=== PATIENT | male | born 1950 | race Caucasian/White ===

== ENCOUNTER → 2016-10-12 | Outpatient (CLI) | payer OTHER, BC ==
[~2016-10-12] VITALS: Ht 177.8 cm; Wt 91.4 kg
[~2016-10-12] MED LIST: ABILIFY 5 MG TAB5 MG PO; ALDACTONE25 MG PO; ALPRAZOLAM 0.0.25 M1 PO; ATORVASTATIN CA10 MG PO; BIAXIN 500 MG500 M1 PO; BUPIVACAINE INTRATHECA; BUPIVICAINE; CALCIUM 500 +1 EAC5 PO; CENTRUM COMPLE1 EACH PO; CENTRUM SILVER1 EAC2 PO; CENTRUM TABLET1 TAB PO; CLONAZEPAM 1 MG1 M1 PO; CYMBALTA60 MG OR; CYMBALTA60 MG PO; DESYREL100 MG PO; DESYREL50 MG PO; DETROL LA4 MG PO; DEXTROAMPHETAMIN5 M2 OR; DILAUDID HP10 MG/M1; DILAUDID-H10 MG/1 M1 INTRATHECA; ENDOCET 10-3251 EACH PO; FINASTERIDE5 MG PO; FISH OIL 1,0001 EAC5 PO; FLOMAX PO; FLORINEF ACETA0.1 MG PO; GABAPENTIN 100100 MG PO; GRALISE600 MG PO; HYDROCODON-ACE1 EACH OR; HYDROCODON-ACE1 EACH PO; HYDROCODONE-AP1 EA10 PO; HYDROMORPHONE; IBUPROFEN 200200 M1 PO; INTRATHECAL MED; LAMISIL250 MG PO; LEVAQUIN 500 M500 M2 PO; LEVOTHROID125 MCG PO; MELATONIN3 MG PO; OMEPRAZOLE 20 M20 M1 PO; OXYCODONE-ACET1 EAC2 PO; PERCOCET 10-321 EACH PO; TAMSULOSIN HCL0.4 M1 PO; TAMSULOSIN HCL0.4 MG OR; VITAMIN D3400 UNIT PO; ZOLOFT100 MG PO
--- NOTE | ~2016-10-12 | HPC ---
[facility] [place] [address] PAIN MANAGEMENT CONSULTATION Name: MESFIN LAKE [id number] Admission: 10/12/16 Attend Phys: William Dimas, Discharge: Date of : 46 Report #: [id number] THIS REPORT FOR: //name// CC: Jc Dimas The patient is a 66-year-old gentleman typically seen by Dr. Rosendo Philip for chronic cervicalgia, headaches, complex medication management requiring intrathecal pump management. Last visit 08/10/2016. The patient was continued on gabapentin 100 mg b.i.d., intrathecal pump (bupivacaine and hydromorphone) with decreased 3% to a final dose of 7.3 mg of each drug. The patient returns to pain clinic today noting that with this decrease, apparently symptoms have become quite more problematic, presents to the pain clinic today complaining of pain is an 8/10 primarily his head, neck, and left shoulder. Dull chronic aching again rates an 8-10 on a 0-10 visual analog scale. PHYSICAL EXAMINATION: Shows 66-year-old gentleman, BMI is 27 kilograms per meter squared. VITAL SIGNS: Stable as noted in the EMR. Former smoker. NEUROLOGIC: Cranial 2-12 are grossly intact. Affect is flat, has some modest photophobia. MUSCULOSKELETAL: Cervical range of motion is modestly diminished. Does not have any nuchal rigidity. The patient is following up at the OR, apparently recent EGD shows the other stomach ulcer. They recommended discontinuing his rather copious use of ibuprofen (up to 10-12 tablets a day). RECOMMENDATION: Long discussion with the patient today about therapeutic options. I will increase his pump back to the prior dose of 7.587 mg of both bupivacaine and hydromorphone a day. Suggested if this does not afford adequate relief, consider increasing his gabapentin to 200 mg at bedtime. He is a little hesitant to move forward this, stating that he thinks that the gabapentin cause some somnolence and/or sedation. Claims that he has continued to take it b.i.d. I suggested rotating to Lyrica, but he states that he has taken that in the past for apparently for bipedal peripheral neuropathy, but he states it did not help at all with his headaches. Intrathecal pump reprogrammed today. Follow up with Dr. Philip as needed. By: 1132 William Dimas DO /nt
[2016-10-12 09:04] VITALS: BP 131/69
== END | disposition home or self-care (01) ==
LOC: PAIN 06:49
DX: M54.2 Cervicalgia (principal); G89.29 Other chronic pain; R51 Headache; Z87.891 Personal history of nicotine dependence; Z98.890 Other specified postprocedural states

== ENCOUNTER → 2016-10-14 | Outpatient (CLI) | payer OTHER, BC ==
[~2016-10-14] VITALS: Ht 177.8 cm; Wt 91.6 kg
--- NOTE | ~2016-10-14 | HPC ---
[facility] [place] [address] PAIN MANAGEMENT CONSULTATION Name: MESFIN LAKE Room #: REG [facility]JaJatinder#: [id number] Admission: 10/14/16 Attend Phys: oRsendo Philip MD Discharge: Date of : 46 Report #: [id number] THIS REPORT FOR: //name// CC: Rosendo Valdivia MD DATE OF SERVICE: 10/14/2016 Followup visit for chronic cervicalgia with some radiating pain in the occiput and radiculopathy. The patient returns to the pain clinic today and would like an increase in his intrathecal pump medication. Dr. William Dimas gave him a very small increase just about a week ago. I have agreed to give him much larger increase and we will see if he responds. He is getting hydromorphone and bupivacaine pump that I have increased by 18% today, this changes his CHELO. The programming was done before discharge, his low reservoir alarm date is now 12/24/2016. PHYSICAL EXAMINATION: GENERAL: He has limited range of motion with flexion and extension. Tenderness across the occiput is noted. There is pain that radiates through the trapezius down into the upper arm bilaterally. Pain is worse on the right than the left. The strength is diminished bilaterally in the upper extremities. There is no evidence of hyperreflexia in the lower extremities to suggest myelopathy. IMPRESSION: Chronic cervicalgia with radiculopathy. Cervical radiculopathy is noted in the lower cervical distribution. At that location, there is foraminal narrowing at C4-C5, C6-C7 and elsewhere throughout the cervical spine. RECOMMENDATIONS: 1. Increase intrathecal pump, which was done first. 2. Consider cervical epidural injections in the future. He was discharged with followup visit planned as needed. By: [id number] Rosendo Philip MD /nt
[2016-10-14 13:04] VITALS: BP 153/79
== END | disposition home or self-care (01) ==
LOC: PAIN 07:01
DX: Z45.1 Encounter for adjustment and management of infusion pump (principal); M54.12 Radiculopathy, cervical region; G89.29 Other chronic pain; Z87.891 Personal history of nicotine dependence

== ENCOUNTER → 2016-12-24 | Outpatient (CLI) | payer OTHER, BC ==
[~2016-12-24] VITALS: Ht 177.8 cm; Wt 91.4 kg
[2016-12-24 08:36] VITALS: BP 134/78
== END | disposition home or self-care (01) ==
LOC: PAIN 06:35
DX: M54.12 Radiculopathy, cervical region (principal); R51 Headache; G89.29 Other chronic pain; Z79.891 Long term (current) use of opiate analgesic; Z87.891 Personal history of nicotine dependence; Z98.890 Other specified postprocedural states

== ENCOUNTER → 2017-03-11 | Outpatient (CLI) | payer OTHER, BC ==
[~2017-03-11] VITALS: Ht 177.8 cm; Wt 92.8 kg
[~2017-03-11] MED LIST changes: +MOBIC7.5 MG PO
--- NOTE | ~2017-03-11 | HPC ---
[facility] [place] [address] [place] [address] PAIN MANAGEMENT CONSULTATION Name: MESFIN LAKE Room #: REG [facility] Mark.#: [id number] Admission: 03/11/17 Attend Phys: Rosendo Philip MD Discharge: Date of : 46 Report #: [id number] THIS REPORT FOR: //name// CC: Rosendo Valdivia DATE OF SERVICE: 03/11/2017 Followup visit for chronic neck pain and management of intrathecal infusion. The patient is seen today requesting an increase in his intrathecal medication. He fell 3 weeks ago. This aggravated his neck and his shoulder. He scores his pain as a 7/10. His pump has been working well and in lieu of increasing oral medications, I believe that it makes sense to increase his intrathecal infusion. He is currently using oxycodone for breakthrough no more than 2 tablets a day, and I have suggested a trial of meloxicam 7.5 mg b.i.d. to help with the joint pain. PHYSICAL EXAMINATION: He is pleasant. Depression is well controlled. Blood pressure 126/65, heart rate 60. BMI 29.4. He has diffuse stiffness and tenderness throughout the neck bilaterally, pain below the occiput. He has restricted range of motion. IMPRESSION: 1. Chronic neck pain with spondylosis. 2. History of posterior decompression and fusion. RECOMMENDATIONS: I have increased intrathecal infusion by 7% today. Daily dose will be bupivacaine 7.9, hydromorphone 7.9. I renewed his oxycodone 2 tablets per day for a total of 30 morphine milligram equivalents daily. A followup visit is scheduled at the time of his next refill, which will be 05/20/2017. By: 1304 20 Rosendo Philip MD /nt
[2017-03-11 09:27] VITALS: BP 126/65
== END | disposition home or self-care (01) ==
LOC: PAIN 06:06
DX: Z45.1 Encounter for adjustment and management of infusion pump (principal); M54.2 Cervicalgia; G89.29 Other chronic pain; M47.892 Other spondylosis, cervical region; Z98.890 Other specified postprocedural states; Z87.891 Personal history of nicotine dependence; Z88.8 Allergy status to other drugs, medicaments and biological substances; Z79.899 Other long term (current) drug therapy

== ENCOUNTER → 2017-06-09 | Outpatient (CLI) | payer OTHER, BC ==
[~2017-06-09] VITALS: Ht 177.8 cm; Wt 94.2 kg
[~2017-06-09] MED LIST changes: +PRAVACHOL20 MG PO; +SYNTHROID100 MCG PO
--- NOTE | ~2017-06-09 | HPC ---
[facility] [address] [place] [address] PAIN MANAGEMENT CONSULTATION Name: MESFIN LAKE Room #: REG [facility].#: [id number] Admission: 06/09/17 Attend Phys: Hi Dimas DO Discharge: Date of : 46 Report #: [id number] THIS REPORT FOR: //name// CC: Hi Valdivia MD DATE OF SERVICE: 06/09/2017 CHIEF COMPLAINT: Chronic neck pain. HISTORY OF PRESENT ILLNESS: As you know, the patient is a 67-year-old male followed by my partner, Dr. Roesndo Philip for chronic back pain and head pain. He indicates his pain is stabbing, sharp, aching in sensation; places current pain score at 5/10; exacerbated with activity. Pain level appears to be constant. Medications, lying down and rest appear to improve pain. The patient has an intrathecal pump that is running hydromorphone and bupivacaine. Most recent changes in his intrathecal pump reveals he is receiving Dilaudid 9 mg per day, bupivacaine 9 mg per day. Despite these high levels of intrathecal infusions, he is continuing to experience pain at 5/10. He returns today in followup visit requesting refills on his breakthrough pain medication. He takes oxycodone and gabapentin for neuropathic pain and residual neck pain. He is denying any side effects to medication at this time. ALLERGIES: Band-Aids, hydroxyzine, mirtazapine, levofloxacin. CURRENT MEDICATIONS: Pravastatin, Levothroid, Percocet, omeprazole, gabapentin, calcium carbonate, multivitamin, cholecalciferol, Florinef, hydromorphone, bupivacaine, intrathecal, duloxetine, ibuprofen. IMAGING: No new imaging available. PHYSICAL EXAMINATION: VITAL SIGNS: Blood pressure 109/88, pulse 64, respiratory rate 16 and unlabored, the patient 99% on room air. Height 5 feet 10 inches tall, weight 207.6 pounds, BMI calculated at 29.8. GENERAL: Well-developed, well-nourished, well-hydrated, 67-year-old male. He appears his stated age, pain is rated at 5/10. HEENT: Normocephalic, atraumatic. Pupils equal, round, reactive to light. Extraocular muscles are intact. Sclerae nonicteric, without injection. Speech appears fluent. EXTREMITIES: Show no clubbing, no cyanosis, no edema. MUSCULOSKELETAL: Tenderness to palpation over the paraspinal musculature, cervical spine, no spinous process tenderness. Deep palpation of the cervical region causes intensification of pain. There is no crepitus with motion. Range of motion is restricted. [address] [address] PAIN MANAGEMENT CONSULTATION Name: DAVID LAKETHIAGO BOURGEOIS Room #: REG CL Cecelia#: [id number] Admission: 06/09/17 Attend Phys: Hi Dimas DO Discharge: Date of : 46 Report #: [id number] ASSESSMENT: 1. Chronic neck pain. 2. Failed cervical spine surgery. 3. Chronic intractable pain. PLAN: 1. The patient has returned today in followup visit placed on my schedule to provide breakthrough pain medication. The patient recently had an adjustment in his intrathecal pump, now infusing 9 mg of Dilaudid per day intrathecal as well as bupivacaine 9 mg per day. Despite this escalation in high level of medication, the patient continues to experience pain level of 5/10. He returns requesting refill on the Percocet, gabapentin, typically provided by Dr. Rosendo Philip, his primary pain physician. Due to scheduling conflicts, the patient was placed on my schedule to provide these medications to the patient today. 2. The patient was provided prescription of oxycodone 10 mg dose 1 tab p.o. b.i.d., #60. He was given releases of today and 4 weeks from today. This should last the patient for approximately 2 months. 3. The patient was provided prescription of gabapentin 100 mg dose, given #180, 1 refill. He is to continue the medication as directed. He has titration of medication provided through his primary pain physician. He is to continue the titration as directed with the gabapentin. 4. We will see the patient back in followup visit with Dr. Rosendo Philip in approximately 2 months for breakthrough pain medication and further adjustments in his intrathecal pump as necessary. Can follow up with Dr. Philip on an as needed basis. <ELECTRONICALLY SIGNED> By: Hi Dimas DO 06/16/17 1216 1706 46 Hi Dimas DO /nt
[2017-06-09 08:58] VITALS: BP 109/88
== END ==
LOC: PAIN 07:09
DX: G89.29 Other chronic pain (principal); M54.2 Cervicalgia

== ENCOUNTER → 2017-09-09 | Outpatient (CLI) | payer OTHER, BC ==
[~2017-09-09] VITALS: Ht 177.8 cm; Wt 94.3 kg
[~2017-09-09] MED LIST changes: +TYLENOL EXTRA500 MG PO
--- NOTE | ~2017-09-09 | HPC ---
[facility] [place] [address] PAIN MANAGEMENT CONSULTATION Name: MESFIN LAKE Room #: REG [facility] Mark.#: [id number] Admission: 09/09/17 Attend Phys: Rosendo Philip MD Discharge: Date of : 46 Report #: [id number] THIS REPORT FOR: //name// CC: Rosendo Valdivia MD DATE OF SERVICE: 09/09/2017 DATE OF REGISTRATION: 09/09/2017 Follow up visit for management of intrathecal infusion pump. The patient returns to pain clinic today for renewal of his intrathecal medications. He has tapered off of opioids. His dose was never too high, usually no more than 20-30 MME. He has been able to reduce his dose, but continues on gabapentin at a dose of 200 mg 3 times daily, which we will continue. His pump is infusing hydromorphone and Dilaudid. We will continue with that. He would like an epidural injection. His pain has increased slightly since coming off of his opioids. He would like not to restart them. His pain is in his low back, below the level of his pump insertion. The pain radiates down in the posterior aspect of both legs and L5-S1 distribution. PQRS review shows history of osteoarthritis. Important instructions regarding remaining mobility as a fuentes management tool was discussed. He has significant range of motion limitations in his neck and his spine due to spondylitic changes. He keeps his weight fairly well under control. He is under 30 BMI with 29.8 score today. He is not under treatment for hypertension. His blood pressure is 143/81. Heart rate is 63 and he is well oxygenated with 98% on room air. Pain intensity is 7/10. He frequently has dizziness, which relates occipital headaches. He is no longer on opioids and I congratulated him on getting off of medication and I will gladly provide him with an epidural, hopefully to keep him off of opioid medication and will provide pain medication only through the intrathecal pump. He is on a relatively high dose of intrathecal hydromorphone, but this does not affect him systemically. PHYSICAL EXAMINATION: He is able to move from sitting to standing position, walks without antalgic features. He has positive straight leg raising noted bilaterally radiates down the L5-S1 distribution. He has limited range of motion of the cervical spine with tenderness around the scar. IMPRESSION: 1. Chronic pain with intrathecal infusion pump. 2. Low back pain with radiculopathy involving both legs in the L5-S1 [facility] [address] [place] [address] PAIN MANAGEMENT CONSULTATION Name: MESFIN LAKE Room #: REG [facility]#: [id number] Admission: 09/09/17 Attend Phys: Rosendo Philip MD Discharge: Date of : 46 Report #: [id number] distribution, left worse than right. 3. Occipital pain with chronic occipital neuralgia. 4. History of depression. PROCEDURE: L5-S1 epidural injection under fluoroscopic guidance. He was taken to fluoroscopic suite, placed prone, skin prepped with ChloraPrep. Skin anesthetized over the L5-S2 interspace. A 20-gauge Tuohy epidural needle advanced in the first attempt in the epidural space with loss of resistance technique. There was no blood. No CSF aspirated. 1 mL of Omnipaque injected. Good spread of dye observed in the epidural space followed by 3 mL of 0.5% lidocaine mixed with 80 mg of triamcinolone. He tolerated the procedure well and was observed for 45 minutes and discharged. Follow up as needed. <ELECTRONICALLY SIGNED> By: Rosendo Philip MD 10/04/17 1408 [id number] [id number] Rosendo Philip MD /nt
[2017-09-09 12:19] VITALS: BP 143/81
== END | disposition home or self-care (01) ==
LOC: PAIN 07:02
DX: M54.16 Radiculopathy, lumbar region (principal); M54.5 Low back pain; G89.4 Chronic pain syndrome; F32.9 Major depressive disorder, single episode, unspecified; M19.90 Unspecified osteoarthritis, unspecified site

== ENCOUNTER → 2018-01-10 | Outpatient (CLI) | payer OTHER, BC ==
[~2018-01-10] VITALS: Ht 177.8 cm; Wt 94.0 kg
--- NOTE | ~2018-01-10 | HPC ---
[facility] [place] [address] PAIN MANAGEMENT CONSULTATION Name: MESFIN LAKE Room #: REG [facility] Mark.#: [id number] Admission: 01/10/18 Attend Phys: Rosendo Philip MD Discharge: Date of : 46 Report #: [id number] THIS REPORT FOR: //name// CC: Rosendo Valdivia MD DATE OF SERVICE: 01/10/2018 Followup visit for chronic low back pain with spondylosis and radiculopathy. The patient returns to pain clinic today for consultation and refill of his intrathecal infusion pump. He has a new MRI scan, which I have reviewed with him and we discussed it for 15-20 minutes at the conclusion of his pump refill. Total time spent in consultation with the patient and exam is 25 minutes today. The patient says that his pain is increasing and is more severe in his low back, it is radiating into his legs. Pain is worse with prolonged sitting. He describes it as a stabbing, aching, sharp sensation, 7/10. Pain does radiate in a radicular pattern down the left leg and at times on the right. He has had previous surgeries, but all on his neck. Intrathecal pump was placed nearly 12 years ago. He is on his second pump and he only has 26 months remaining on it. He is currently being treated for his chronic pain with a combination of hydromorphone and bupivacaine, which will remain at roughly 9 mg per day for each medication. He reports that the pain in his back oftentimes limits his activities, he likes to paint and do tie flies. Both are limited. He has a PQRS review, which shows that he has osteoarthritis of the lumbar spine, also enlarged joints. He has had previous spondylitic changes above and below the surgery in his neck. His BMI today is 29.7. He manages his weight. He is not hypertensive and is not under treatment. He is currently receiving all of his pain medication through his intrathecal pump and we no longer provide him with any opioids orally. He uses gabapentin as a supplement to his intrathecal opioids. He does not smoke nor does he use alcohol. He has completed our risk assessment tool. PHYSICAL EXAMINATION: Reveals a pleasant gentleman, alert and oriented. No signs of overmedication. Pump is in the right lower quadrant, nontender. He is able to move from sitting to standing position, but complains of pain in his back with flexion of the lumbar spine and extension. Rotational movements and lateral tilt are also performed with some increase in pain. Straight leg raising is markedly positive on the left in the sitting and supine position. Pain is mostly in his back; however, and does not radiate so much into the leg. [address] [address] PAIN MANAGEMENT CONSULTATION Name: MESFIN LAKE CHRISTELLE Room #: REG CL Cecelia#: [id number] Admission: 01/10/18 Attend Phys: Rosendo Philip MD Discharge: Date of : 46 Report #: [id number] Sensation is intact. Deep tendon reflexes are 2+ knees and ankles. MRI scan is reviewed. It does show that he has some lateral recess stenosis; however, the central stenosis is fairly moderate to mild and not considered to be significant. He has some neuroforaminal narrowing, perhaps at L4-L5 at the worst. Degenerative disk disease throughout is noted. IMPRESSION: 1. Lumbosacral pain with radiculopathy both legs, L4 through S1. 2. Chronic occipital neuralgia. 3. History of depression, stable. 4. Management of intrathecal infusion pump. PLAN: 1. May consider an epidural injection once again. However, I would consider a transforaminal approach at L4-L5 given limited response to midline approach. 2. Refill of intrathecal infusion pump. PROCEDURE: Skin was prepped with ChloraPrep. Skin anesthetized and a 22-gauge non-coring needle advanced in the intrathecal pump. Old medication removed and discarded. Pump refilled with a combination of bupivacaine and hydromorphone. Dose will remain roughly 9 mg per day of each. A reprogramming session shows that his next reservoir alarm date is 05/15/2018. His reservoir volume is 39.5. His CHELO is 26 months. I did discuss with him the possibility of about 1% that a pocket fill or leakage from his pump could occur that could cause an overdose situation typically found within the first 6-24 hours following pump refill. If he feels excessively drowsy or sedated in any way that he should visit the nearest Emergency Room. They have my cell phone for contact at any time. Followup visit is planned in the pain clinic in April. By: 1106 1207 Rosendo Philip MD /nt
[2018-01-10 09:36] VITALS: BP 131/66
== END | disposition home or self-care (01) ==
LOC: PAIN 08:35
DX: Z45.1 Encounter for adjustment and management of infusion pump (principal); M47.27 Other spondylosis with radiculopathy, lumbosacral region; M54.81 Occipital neuralgia; G89.29 Other chronic pain; Z79.891 Long term (current) use of opiate analgesic; Z86.59 Personal history of other mental and behavioral disorders; Z79.899 Other long term (current) drug therapy; Z87.891 Personal history of nicotine dependence; Z88.8 Allergy status to other drugs, medicaments and biological substances

== ENCOUNTER → 2018-04-25 | Outpatient (CLI) | payer OTHER, BC ==
[~2018-04-25] VITALS: Ht 177.8 cm; Wt 95.4 kg
--- NOTE | ~2018-04-25 | HPC ---
[facility] [place] [address] [place] [address] PAIN MANAGEMENT CONSULTATION Name: MESFIN LAKE Room #: REG [facility] Mark.#: [id number] Admission: 04/25/18 Attend Phys: Rosendo Philip MD Discharge: Date of : 46 Report #: [id number] THIS REPORT FOR: //name// CC: Rosendo Valdivia MD DATE OF SERVICE: 04/25/2018 Followup visit for epidural steroid injection. The patient returns to pain clinic today for an injection. He has been a longstanding patient of our clinic and I have provided him with pain management through the use of an intrathecal pump, which has been quite helpful and I have also given him some supplement medication under gabapentin. He is not currently taking oral opioid. His last prescription for oxycodone in our clinic was on 06/09/2017. His intrathecal pump provides medication at fairly high dose. We have adjusted it periodically over the years. His most recent refill was on 01/10/2018. He is receiving 9 mg a day of both bupivacaine and hydromorphone. We refill his pump at roughly 4-month intervals. Today, his pain is primarily on the left and radiates down in an L5-S1 distribution. He had a new MRI done in October, which demonstrated a left-sided disk protrusion with facet and ligament hypertrophy causing left foraminal stenosis. He also has evidence of a disk protrusion with facet ligament hypertrophy at both L3-L4 and L4-L5 into the lateral recess bilaterally. His symptom is primarily on the left. Based upon the presentation of his symptoms as well as pain, I recommended that we proceed today with a transforaminal injection. Potential benefits and risks have been reviewed. PQRS review completed shows that he does have osteoarthritis of his large joints, hips and knees, but his primary complaint is spinal and radicular. He has marked spondylitic changes as noted in his MRI. He has significant spondylitic changes above and below the area of the surgery in his neck. His BMI is 30.2. He has gained a slight amount of weight. Monitoring of diet and exercise to maintain weight is an important aspect to pain management was reviewed. He does not use opioids and is not currently on an agreement. He has completed an opioid risk tool, however, and is low risk for addiction. PHYSICAL EXAMINATION: A pleasant, soft spoken gentleman. His blood pressure is 152/68, heart rate 67, BMI 30.2. He has marked stiffness throughout his neck. Has limited range of motion. He has some difficulty and is slow in moving from supine to sitting to standing position. He was in supine position when I came into the room. He has complaints of pain with all movement of the lumbar spine. [address] [address] PAIN MANAGEMENT CONSULTATION Name: MESFIN LAKE Room #: REG [facility] Rai#: [id number] Admission: 04/25/18 Attend Phys: Rosendo Philip MD Discharge: Date of : 46 Report #: [id number] Tenderness across the low back. Straight leg raising is positive on the left following an L5-S1 distribution. Most of his pain, however, we will check is in his lumbosacral region. IMPRESSION: 1. Chronic low back pain with radiculopathy, primarily left today L5-S1 distribution. 2. Chronic occipital neuralgia. 3. History of depression, stable. 4. Management of intrathecal infusion pump. He does not need a refill today. PROCEDURE: Transforaminal epidural injection under fluoroscopic guidance. DESCRIPTION OF PROCEDURE: He was taken to fluoroscopic suite and he was placed prone, skin prepped with ChloraPrep. Skin anesthetized over the L5-S1 neural foramen. Using triplanar fluoroscopic views, I advanced the needle carefully into the epidural space. There was no blood or CSF aspirated. 1 mL of Omnipaque was injected. Good spread of dye was observed along the nerve root and into the epidural space, was followed by 3 mL of 0.5% lidocaine mixed with 80 mg triamcinolone. He tolerated the procedure well and was observed for 45 minutes and discharged. Pain was reduced at the time of discharge. We will see him back in the pain clinic for refill of his intrathecal infusion pump. By: [id number] Rosendo Philip MD /nt
[2018-04-25 12:39] VITALS: BP 152/68
== END | disposition home or self-care (01) ==
LOC: PAIN 06:03
DX: M54.16 Radiculopathy, lumbar region (principal); G89.29 Other chronic pain; M54.81 Occipital neuralgia; M17.0 Bilateral primary osteoarthritis of knee; M16.0 Bilateral primary osteoarthritis of hip; Z86.59 Personal history of other mental and behavioral disorders; Z98.890 Other specified postprocedural states; Z87.39 Personal history of other diseases of the musculoskeletal system and connective tissue; Z88.8 Allergy status to other drugs, medicaments and biological substances; Z79.899 Other long term (current) drug therapy; Z87.891 Personal history of nicotine dependence

== ENCOUNTER → 2018-05-12 | Outpatient (CLI) | payer OTHER, BC ==
[~2018-05-12] VITALS: Ht 177.8 cm; Wt 96.2 kg
--- NOTE | ~2018-05-12 | HPC ---
[facility] [place] [address] PAIN MANAGEMENT CONSULTATION Name: MESFIN LAKE Room #: REG iSria Cecelia#: [id number] Admission: 05/12/18 Attend Phys: Rosendo Philip MD Discharge: Date of : 46 Report #: [id number] THIS REPORT FOR: //name// CC: Rosendo Valdivia DATE OF SERVICE: 05/12/2018 Followup visit for management of intrathecal pump with refill for chronic intractable pain. The patient returns to clinic today for refill of his pump. At his most recent visit, I performed a transforaminal epidural injection for left-sided radiculopathy. He has responded very nicely to that injection and has now had nearly 3 weeks of sustained improvement. We will keep this in mind as a possible treatment for the future. I reviewed his x-ray from that injection, which was performed using a left-sided transforaminal approach of L5-S1. He does have an upcoming surgery with Dr. Garcia, a laminectomy on that side, so these injections may not be necessary in the future. His pump contains baclofen and hydromorphone and it is time for a refill. PQRS is positive for osteoarthritis of hips and knees and spondylosis. BMI is 30. He does not use oral opioids and does not require an opioid agreement. He is on no blood thinning medications and is not under treatment for hypertension. IMPRESSION: 1. Chronic pain with cervicalgia and occipital neuralgia. 2. Lumbar radiculopathy, left L5 distribution with pending L5 laminectomy in the next 1-2 weeks. 3. History of depression, in remission. 4. Management of intrathecal pump with refill. PROCEDURE: Skin prepped with ChloraPrep and anesthetized. A 22-gauge non-coring needle advanced into the pump. Old medication removed and discarded per protocol. Pump was refilled with hydromorphone and bupivacaine and reprogrammed to provide bupivacaine 8.9 mg a day and hydromorphone 8.9 mg a day. His CHELO is 26 months. His next refill is scheduled for 09/14/2018, follow up at that time. No medications were ordered today by phone, but I did give him a prescription for continuation of gabapentin. He has some question on how effective it may be and we talked about different ways of utilizing it. Finally, I did also discuss the use of mindfulness meditation as a tool to help with sleep at nighttime. [address] [address] PAIN MANAGEMENT CONSULTATION Name: DAVID LAKETHIAGO BOURGEOIS Room #: REG CLSiria Rai#: [id number] Admission: 05/12/18 Attend Phys: Rosendo Philip MD Discharge: Date of : 46 Report #: [id number] PLAN: Avoid additional medications if at all possible. By: [id number] Rosendo Philip MD /vale
[2018-05-12 08:47] VITALS: BP 134/70
== END | disposition home or self-care (01) ==
LOC: PAIN 04:25
DX: Z45.1 Encounter for adjustment and management of infusion pump (principal); M54.2 Cervicalgia; M54.81 Occipital neuralgia; G89.29 Other chronic pain; M54.16 Radiculopathy, lumbar region; M19.90 Unspecified osteoarthritis, unspecified site; F32.4 Major depressive disorder, single episode, in partial remission; Z98.890 Other specified postprocedural states; Z79.891 Long term (current) use of opiate analgesic; Z79.899 Other long term (current) drug therapy

== ENCOUNTER → 2018-09-12 | Outpatient (CLI) | payer OTHER, BC ==
[~2018-09-12] VITALS: Ht 177.8 cm; Wt 98.9 kg
--- NOTE | ~2018-09-12 | HPC ---
[facility] [place] [address] PAIN MANAGEMENT CONSULTATION Name: MESFIN LAKE Room #: REG WILMAR Cecelia#: [id number] Admission: 09/12/18 ������������������ Attend Phys: Rosendo Philip MD Discharge: ������������������ Date of : 46 Report #: [id number] THIS REPORT FOR: //name// CC: Rosendo Valdivia DATE OF SERVICE: 09/12/2018 Followup visit for chronic low back pain with radiculopathy and intrathecal pump management. The patient returns to clinic today for refill of his intrathecal pump. He has bupivacaine and hydromorphone infusing. He recently had surgery with Dr. Shon Garcia and is doing well. I am pleased with his outcome and he has recovered nicely and seems to be doing better overall. He is not taking any opioids at this time. Gabapentin 300 mg taken 3 times a day seems to be helpful. He would like to have an additional dose at night. I am willing to provide him up to 1200 mg, but will provided with the 300 mg capsules, so change in medication was ordered today from 100 to 300 mg capsules. PQRS review shows that he is a pleasant gentleman with a history of diffuse osteoarthritis involving the large joints. He manages effectively with his intrathecal medication. His pain intensity is 4/10. He is not a fall risk. He is on no blood thinners nor treated for hypertension. He is not taking opioids at this time and does not use tobacco or alcohol. All medications were reviewed and reconciled. PHYSICAL EXAMINATION: Height is 5 feet 10 inches, weight is 218 pounds, BMI of 31.3, blood pressure 148/77, heart rate 70, respirations 16. He moves easily from sitting to standing position, walks without difficulty. He has tension in his neck and pain with rotational movements of the neck, but these are mild to moderate. He has some pain across his low back and tenderness on his scar, but the lumbar radiculopathy is gone. IMPRESSION: 1. Low back pain with radicular symptoms much improved following surgery. 2. Chronic cervicalgia with occipital neuralgia treated by intrathecal infusion pump doing well. PROCEDURE: Refill and reprogramming intrathecal pump. Skin was prepped with ChloraPrep. A 22-gauge non-coring needle advanced in the pump on the first attempt without difficulty. Good return of 2.7 mL of volume was achieved and this was discarded per protocol. The pump was then refilled [facility] [address] [place] [address] PAIN MANAGEMENT CONSULTATION Name: MESFIN LAKE [id number] Admission: 09/12/18 ������������������ Attend Phys: Rosendo Philip MD Discharge: ������������������ Date of : 46 Report #: [id number] with 39.5 mL of a combination of bupivacaine and hydromorphone and reprogramming session was performed without change. Daily dose is 9.0 mg of bupivacaine and 9.0 mg of hydromorphone. His next refill is scheduled for 01/15/2019. His CHELO is 19 months. We discussed that with him today. No other prescriptions were ordered and plan to see him back for refill at appropriate interval. ��������������������������������������������� ���������������������������������������� By: ��������������������������������������������� [id number] Rosendo Philip MD /nt
[2018-09-12 08:50] VITALS: BP 148/77
--- NOTE | 2018-09-12 09:09 | NUR ---
Pain Clinic Assessment: 1. History of Osteoarthritis: YES History of Rheumatoid Arthritis: NO 2. Height: 5 ft. 10 in. 177.8 cm. Weight: 218.0 lb. oz. 98.884 kg. Patient's BMI: 31.3 3. Vital Signs: BP: 148/77 Pulse: 70 Resp: 16 Temp: 02 Sat: 98 ECG Mon: 4. Pain Intensity: 4 5. Fall Risk: Dizziness: N Needs help standing or walking: N Fallen in the last 3 months: N Fall risk comments: 6. Patient on Blood Thinner: None 7. History of Hypertension: N 8. Opioid Therapy greater than 6 weeks: N Opiate Contract Signed: 9. Risk Assessment Tool Provided: 10. Functional Assessment Tool: 11. Recreational Drug Use: Never Drug Type: Tobacco Use: Former Smoker Tobacco Type: Amount or Packs/day: How Many Years: Alcohol Use: No Frequency: Quant:
== END | disposition home or self-care (01) ==
LOC: PAIN 06:58
DX: Z45.1 Encounter for adjustment and management of infusion pump (principal); M54.16 Radiculopathy, lumbar region; M54.2 Cervicalgia; G89.29 Other chronic pain; M54.81 Occipital neuralgia; M19.90 Unspecified osteoarthritis, unspecified site; Z98.890 Other specified postprocedural states; Z79.891 Long term (current) use of opiate analgesic; Z87.891 Personal history of nicotine dependence; Z88.8 Allergy status to other drugs, medicaments and biological substances; Z79.899 Other long term (current) drug therapy

== ENCOUNTER → 2019-01-12 | Outpatient (CLI) | payer OTHER, BC ==
[~2019-01-12] VITALS: Ht 177.8 cm; Wt 98.7 kg
[~2019-01-12] MED LIST changes: +LASIX 20 MG TAB20 MG PO; +NEURONTIN 300300 M1 PO; -SYNTHROID100 MCG PO; +SYNTHROID125 MC1 PO
--- NOTE | ~2019-01-12 | HPC ---
[facility] [address] [place] [address] PAIN MANAGEMENT CONSULTATION Name: MESFIN LAKE Room #: [facility] [id number] Admission: 01/12/19 ������������������ Attend Phys: Rosendo Philip MD Discharge: ������������������ Date of : 48 Report #: [id number] THIS REPORT FOR: //name// CC: Rosendo Valdivia MD DATE OF SERVICE: 01/12/2019 CHIEF COMPLAINT: Followup visit for chronic intractable low back pain with radiculopathy. Management of intrathecal infusion pump with refill and reprogramming session. HISTORY OF PRESENT ILLNESS: The patient returns to pain clinic for refill of his intrathecal pump. His swelling has dramatically improved over his last visit. He had bilateral lower extremity edema. He decreased his gabapentin and this improved along with 20 mg of Lasix daily. His ankle and foot practically normal today. It is felt that the gabapentin was the cause of his lower extremity swelling and cellulitis. His pain is slightly increased, however. He would like to increase his intrathecal infusion pump. It has been a while since we have done so. I have agreed to increase it by 10%. PQRS REVIEW: 1. He does have a history of osteoarthritis involving hips and knees. 2. BMI is 31.2. 3. Vital Signs: Blood pressure 131/69, heart rate 70, respirations 14. 4. Pain intensity is 3/10 at rest, increasing with activity. 5. He is not a fall risk. 6. No blood thinners. 7. No history of hypertension and is not on medications. 8. He does not have an opioid agreement and receives no oral opioid medication. 9. No risk tool necessary. 10. Denies use of tobacco and alcohol. PHYSICAL EXAMINATION: MUSCULOSKELETAL: He has pain across his low back and tenderness along the scar from his previous surgery. He denies radicular pain. He is able to independently move from sitting to standing position, have mild antalgic features to his gait. EXTREMITIES: Examination of lower extremities reveals good skin turgor. No evidence of edema. Peripheral pulses are palpable. IMPRESSION: 1. Chronic low back pain with radiculopathy, status post laminectomy. [address] [address] PAIN MANAGEMENT CONSULTATION Name: MESFIN LAKE CHRISTELLE Room #: REG CL Mark.#: [id number] Admission: 01/12/19 ������������������ Attend Phys: Rosendo Philip MD Discharge: ������������������ Date of : 46 Report #: [id number] 2. Chronic cervicalgia and occipital neuralgia treated with intrathecal infusion pump, stable. PROCEDURE: Refill and reprogramming of intrathecal infusion pump. Skin was prepped with ChloraPrep and a 22-gauge non-coring needle advanced in the pump. Old medication removed and discarded. Pump refilled with hydromorphone 30 mg/mL and bupivacaine 30 mg/mL. Reprogramming session was performed. His next pump refill will be before 05/05/2019. His CHELO is now down to 15 months. He will need a pump replacement sometime in the spring. I did increase his daily dose. He will be receiving bupivacaine 9.8 mg per day and hydromorphone 9.8 mg per day. Followup visit scheduled in 04/2019. ��������������������������������������������� ���������������������������������������� By: ��������������������������������������������� [id number] Rosendo Philip MD /nt
[2019-01-12 08:42] VITALS: BP 131/69
--- NOTE | 2019-01-12 08:58 | NUR ---
Pain Clinic Assessment: 1. History of Osteoarthritis: YES History of Rheumatoid Arthritis: NO 2. Height: 5 ft. 10 in. 177.8 cm. Weight: 217.6 lb. oz. 98.703 kg. Patient's BMI: 31.2 3. Vital Signs: BP: 131/69 Pulse: 70 Resp: 14 Temp: 02 Sat: 96 ECG Mon: 4. Pain Intensity: 3 5. Fall Risk: Dizziness: N Needs help standing or walking: N Fallen in the last 3 months: N Fall risk comments: 6. Patient on Blood Thinner: None 7. History of Hypertension: N 8. Opioid Therapy greater than 6 weeks: N Opiate Contract Signed: 9. Risk Assessment Tool Provided: 10. Functional Assessment Tool: 11. Recreational Drug Use: Never Drug Type: Tobacco Use: Former Smoker Tobacco Type: Amount or Packs/day: How Many Years: Alcohol Use: No Frequency: Quant:
== END | disposition home or self-care (01) ==
LOC: PAIN 08:27
DX: Z45.1 Encounter for adjustment and management of infusion pump (principal); M54.16 Radiculopathy, lumbar region; G89.29 Other chronic pain; M54.2 Cervicalgia; M54.81 Occipital neuralgia; M19.90 Unspecified osteoarthritis, unspecified site; Z98.890 Other specified postprocedural states; Z79.899 Other long term (current) drug therapy; Z79.891 Long term (current) use of opiate analgesic; Z87.891 Personal history of nicotine dependence; Z88.8 Allergy status to other drugs, medicaments and biological substances

== ENCOUNTER → 2019-01-27 | Outpatient (CLI) | payer OTHER, BC | LOC: MRI 06:42 | DX: M47.27 Other spondylosis with radiculopathy, lumbosacral region (principal); M51.17 Intervertebral disc disorders with radiculopathy, lumbosacral region; M51.27 Other intervertebral disc displacement, lumbosacral region; M51.25 Other intervertebral disc displacement, thoracolumbar region; M51.26 Other intervertebral disc displacement, lumbar region; M48.062 Spinal stenosis, lumbar region with neurogenic claudication; M48.07 Spinal stenosis, lumbosacral region ==

== ENCOUNTER → 2019-03-20 | Outpatient (CLI) | payer OTHER, BC ==
[~2019-03-20] VITALS: Ht 177.8 cm; Wt 98.6 kg
[~2019-03-20] MED LIST changes: +GABAPENTIN100 MG PO; +NEURONTIN300 MG PO
[2019-03-20 12:45] VITALS: BP 150/78
--- NOTE | 2019-03-20 13:01 | NUR ---
Pain Clinic Assessment: 1. History of Osteoarthritis: back History of Rheumatoid Arthritis: NO 2. Height: 5 ft. 10 in. 177.8 cm. Weight: 217.4 lb. oz. 98.612 kg. Patient's BMI: 31.2 3. Vital Signs: BP: 150/78 Pulse: 72 Resp: 16 Temp: 02 Sat: 100 ECG Mon: 4. Pain Intensity: 2 5. Fall Risk: Dizziness: N Needs help standing or walking: N Fallen in the last 3 months: N Fall risk comments: 6. Patient on Blood Thinner: None 7. History of Hypertension: N 8. Opioid Therapy greater than 6 weeks: N Opiate Contract Signed: 9. Risk Assessment Tool Provided: low-0 10. Functional Assessment Tool: 34/70 11. Recreational Drug Use: Never Drug Type: Tobacco Use: Former Smoker Tobacco Type: Amount or Packs/day: How Many Years: Alcohol Use: No Frequency: Quant:
--- NOTE | 2019-03-21 13:02 | HPC ---
[facility] [address] [place] [address] PAIN MANAGEMENT CONSULTATION Name: MESFIN LAKE Room #: REG [facility] [id number] Admission: 03/20/19 Attend Phys: Ashley Rae Discharge: Date of : 46 Report #: [id number] THIS REPORT FOR: //name// CC: Ashley Valdivia MD DATE OF SERVICE: 03/20/2019 CHIEF COMPLAINT: Followup for chronic intractable low back pain with radiculopathy, management of his intrathecal infusion pump. HISTORY OF PRESENT ILLNESS: This is a very pleasant 69-year-old gentleman who returns to the pain clinic today for refill of his medications that he uses to help treat his ongoing low back pain and radiculopathy. He reports a pain score of 2/10 today with the majority of his pain in his lower back. He does have occasional head and neck pain as well. His pain is an achy, sharp, stabbing pain that is worse with activity, but better with medications and lying down. He feels that his gabapentin is very beneficial as well as his intrathecal pump in controlling his pain. He reports that his pain has decreased significantly since his surgery with Dr. Garcia last April and he continues to get better throughout this year. He is here today for refill of his gabapentin since he is out prior to his intrathecal pump fill. ALLERGIES: BAND-AIDS, VISTARIL, MIRTAZAPINE AND LEVAQUIN. CURRENT LIST OF MEDICATIONS: Gabapentin 300 mg 4 times a day, Lasix 20 mg daily, ibuprofen p.r.n., Synthroid 127 mcg daily, Os-Hayes, multivitamin, vitamin D, Cymbalta 120 mg daily. PATIENT'S PQRS: 1. Does have a history of osteoarthritis involving hips and his knees. Denies any rheumatoid arthritis. 2. Height is 5 feet 10 inches, weight is 217, and BMI is 31. 3. Vital signs 150/78, pulse is 72, respirations 16, oxygen sat is 100. Pain score is 2/10. 4. Denies dizziness, does not need help walking or standing, has not fallen in the last 3 months. 5. The patient is not on any blood thinners or hypertensive medicines. 6. Opioid therapy is greater than 6 weeks; therefore, an opiate signed contract is on the chart. Risk assessment tool is low. Functional assessment is 34/70. 7. Recreational drug use, he denies. He is a former smoker and does not drink alcohol. PHYSICAL EXAMINATION: [facility] [address] [place] [address] PAIN MANAGEMENT CONSULTATION Name: MESFIN LAKE Room #: REG [facility].#: [id number] Admission: 03/20/19 Attend Phys: Ashley Rae Discharge: Date of : 48 Report #: [id number] GENERAL: This is alert and orientated 69-year-old gentleman who appears his stated age, placing his current pain score 2/10. HEENT: Normocephalic, atraumatic. Extraocular eye muscles are intact. He is wearing glasses today. MUSCULOSKELETAL: He has tenderness along the scar in his lower back region from previous surgery. Complains of slight radicular pain down his bilateral legs. Able to move independently from the sitting to standing position. He walks with a slightly antalgic gait. ASSESSMENT: 1. Chronic low back pain with radiculopathy, status post lumbar laminectomy. 2. Chronic cervicalgia and occipital neuralgia treated with intrathecal infusion pump, which is stable. RECOMMENDATIONS: 1. I have renewed his gabapentin 300 mg, #120 that he takes 3-4 times a day with 5 additional refills for a total of 6 months. This will enable the patient to hopefully make it through this refill into his next, trying to have his appointments only for his intrathecal pump refills and not needed to come in for medications. 2. The patient may call for an appointment for his pump refill in early April. The patient is seen today in collaboration with Dr. Rosendo Philip who did see the patient as well. <ELECTRONICALLY SIGNED> By: Ashley Rae 03/21/19 1302 [id number] Ashley Rae /vale
== END ==
LOC: PAIN 06:55
DX: M54.16 Radiculopathy, lumbar region (principal); M54.2 Cervicalgia

== ENCOUNTER → 2019-05-04 | Outpatient (CLI) | payer OTHER, BC ==
[~2019-05-04] VITALS: Ht 177.8 cm; Wt 98.1 kg
--- NOTE | ~2019-05-04 | HPC ---
[facility] [address] [place] [address] PAIN MANAGEMENT CONSULTATION Name: MESFIN LAKE Room #: REG Siria Flores.#: [id number] Admission: 05/04/19 Attend Phys: Rosendo Philip MD Discharge: Date of : 46 Report #: [id number] THIS REPORT FOR: //name// CC: Rosendo Valdivia MD DATE OF SERVICE: 05/04/2019 The patient returns today for refill of his intrathecal infusion pump. He continues to provide a decent pain relief for his chronic low back pain with radiculopathy. He describes his pain today as moderate and pain score is 2/10. It is stabbing, aching, sharp. It is increased with activity. It is relieved by medications sleep, and he is more comfortable in the supine position. In addition to his intrathecal medicines, he uses gabapentin 300 mg, but he has reduced the dose down to one 300-mg tablet per day. He would like to taper off and I have given him 100-mg tablets today to do so. PQRS REVIEW: 1. Arthritis is noted primarily in the back with spondylosis. 2. BMI 31.0. 3. Vital signs: Blood pressure 126/73, heart rate 66, respirations 14. 4. Pain intensity is 5/10. 5. Denies falls. 6. Denies blood thinning medications or antihypertensives. 7. He is no longer on opioids, has completed an opioid risk tool scoring 0 and his functional assessment score is 34/70. 8. Denies use of tobacco and alcohol. PHYSICAL EXAMINATION: As above, very pleasant, alert and oriented. No signs of overmedication. He moves independently from sitting to standing position, does not need a cane to walk. His gait is mildly antalgic. He has decreased range of motion in the cervical spine and tenderness below the occiput. He has pain across the low back with flexion and extension and rotation, but this is mild to moderate. Denies weakness in lower extremities. Pump is in the right lower quadrant. IMPRESSION: 1. Chronic intractable low back pain, post laminectomy syndrome. 2. Cervicalgia with chronic occipital neuralgia. PLAN: Refill intrathecal infusion pump. PROCEDURE: Skin was prepped with ChloraPrep and a 22-gauge non-coring needle advanced in the pump. Old medication removed and discarded per protocol. Pump [facility] [address] [place] [address] PAIN MANAGEMENT CONSULTATION Name: MESFIN LAKE CHRISTELLE Room #: REG WILMAR Rai#: [id number] Admission: 05/04/19 Attend Phys: Rosendo Philip MD Discharge: Date of : 46 Report #: [id number] was refilled with bupivacaine and hydromorphone and reprogrammed with 9.8 mg of each medication delivered per day. Next refill is scheduled for 08/25/2018. Reprogramming information was checked and provided to the patient. A copy kept also in the chart. Prescription written for gabapentin 100 mg t.i.d. and a tapering schedule provided and a followup visit is scheduled in July. By: [id number] Rosendo Philip MD /nt
[2019-05-04 11:34] VITALS: BP 126/73
--- NOTE | 2019-05-04 11:51 | NUR ---
Pain Clinic Assessment: 1. History of Osteoarthritis: BACK History of Rheumatoid Arthritis: NO 2. Height: 5 ft. 10 in. 177.8 cm. Weight: 216.2 lb. oz. 98.068 kg. Patient's BMI: 31.0 3. Vital Signs: BP: 126/73 Pulse: 66 Resp: 14 Temp: 02 Sat: 100 ECG Mon: 4. Pain Intensity: 5 5. Fall Risk: Dizziness: N Needs help standing or walking: N Fallen in the last 3 months: N Fall risk comments: 6. Patient on Blood Thinner: None 7. History of Hypertension: N 8. Opioid Therapy greater than 6 weeks: N Opiate Contract Signed: 9. Risk Assessment Tool Provided: low-0 10. Functional Assessment Tool: 34/70 11. Recreational Drug Use: Never Drug Type: Tobacco Use: Former Smoker Tobacco Type: Amount or Packs/day: How Many Years: Alcohol Use: No Frequency: Quant:
== END | disposition home or self-care (01) ==
LOC: PAIN 06:53
DX: Z45.1 Encounter for adjustment and management of infusion pump (principal); G89.29 Other chronic pain; M54.16 Radiculopathy, lumbar region; M96.1 Postlaminectomy syndrome, not elsewhere classified; M54.2 Cervicalgia; M54.81 Occipital neuralgia; Z98.890 Other specified postprocedural states; Z87.891 Personal history of nicotine dependence; Z88.8 Allergy status to other drugs, medicaments and biological substances; Z79.899 Other long term (current) drug therapy

== ENCOUNTER → 2019-07-31 | Outpatient (CLI) | payer OTHER, BC ==
[~2019-07-31] VITALS: Ht 177.8 cm; Wt 98.0 kg
[~2019-07-31] MED LIST changes: +OMEPRAZOLE40 MG PO; +RECLAST 55 MG/100 M IV
--- NOTE | ~2019-07-31 | HPC ---
[facility] [address] [place] [address] PAIN MANAGEMENT CONSULTATION Name: MESFIN LAKE Room #: REG [facility] [id number] Admission: 07/31/19 Attend Phys: Rosendo Philip MD Discharge: Date of : 46 Report #: [id number] THIS REPORT FOR: cc: Jc Valdivia MD, Steven E. MD Morgan, Richard L. MD ~ THIS REPORT FOR: //name// CC: Rosendo Valdivia MD DATE OF SERVICE: 07/31/2019 Followup visit for chronic cervicalgia. The patient returns to pain clinic today to see if we could increase his pump. He is having increasing pain after a fall that occurred around the end of May. It was a fairly severe fall, he landed striking his head against a cabinet even punching a hole into the wall. He was seen in the Emergency Room and evaluated. There was no evidence of hematoma on head CT. He was observed and sent home. He has been having increasing dizziness as well as pain since the episode. His intrathecal pump infuses a combination of hydromorphone and bupivacaine. His dose has been stable for some time. He receives 9.8 mg of both hydromorphone and bupivacaine throughout the day. I do not believe the medication in the intrathecal pump is causing the dizziness since he has been accommodated to it for some time. He does take gabapentin, which has some dizziness associated with it and he has been trying to minimize his dose there, but it also provides good true analgesic effects and he does not want to stop it completely. PQRS REVIEW: Positive for osteoarthritis. He has spondylosis of the lumbar spine. BMI is 31.0, blood pressure 150/72, heart rate 72. He has been tested recently for orthostatic changes and there was a 20 mm drop. We did not test him today. Pain intensity 9/10. He has fallen in the last 3 months and complains of dizziness. He does not need help standing or walking. He is on no blood thinners and is not treated for hypertension. Takes no opioid medication and does not have an agreement. Denies use of tobacco and alcohol. PHYSICAL EXAMINATION: He is soft spoken and pleasant. Moves slowly and independently from sitting to standing position. His gait is slow and somewhat shuffling. Blood pressure 150/72, heart rate 72, respirations 16, O2 sat 97. HEENT: Normal. Pupils equal, round, reactive to light. EOMs are intact. Mucous membranes are moist. [facility] [address] [place] [address] PAIN MANAGEMENT CONSULTATION Name: MESFIN LAKE Room #: REG [facility]#: [id number] Admission: 07/31/19 Attend Phys: Rosendo Philip MD Discharge: Date of : 46 Report #: [id number] NECK: Reveals tenderness in the suboccipital and along the splenius capitis, cervicalis and levator scapulae muscles. There is tenderness in the trapezius. Some pain with shrugging of the shoulders. CHEST: Clear. CARDIAC: Rhythm regular, without any audible murmur. IMPRESSION: 1. Chronic cervicalgia. 2. Dizziness. RECOMMENDATIONS: I will increase his intrathecal infusion pump to help the pain, so that we do not have to start any other additional medicines. It was increased by 10%. Reprogramming information performed and provided to the patient. If his dizziness increases with this, we will drop him back down and he can come back in the clinic any time this week. No other medications were ordered. Plan is to see him in 3 weeks for pump refill. By: [id number] Rosendo Philip MD /nt
[2019-07-31 14:09] VITALS: BP 150/72
--- NOTE | 2019-07-31 14:21 | NUR ---
Pain Clinic Assessment: 1. History of Osteoarthritis: BACK History of Rheumatoid Arthritis: NO 2. Height: 5 ft. 10 in. 177.8 cm. Weight: 216.0 lb. oz. 97.977 kg. Patient's BMI: 31.0 3. Vital Signs: BP: 150/72 Pulse: 72 Resp: 16 Temp: 02 Sat: 97 ECG Mon: 4. Pain Intensity: 9 5. Fall Risk: Dizziness: N Needs help standing or walking: N Fallen in the last 3 months: Y Fall risk comments: 6. Patient on Blood Thinner: None 7. History of Hypertension: N 8. Opioid Therapy greater than 6 weeks: N Opiate Contract Signed: 9. Risk Assessment Tool Provided: low-0 10. Functional Assessment Tool: 34/70 11. Recreational Drug Use: Never Drug Type: Tobacco Use: Former Smoker Tobacco Type: Amount or Packs/day: How Many Years: Alcohol Use: No Frequency: Quant:
== END | disposition home or self-care (01) ==
LOC: PAIN 06:59
DX: M54.2 Cervicalgia (principal); G89.29 Other chronic pain; M19.90 Unspecified osteoarthritis, unspecified site; Z98.890 Other specified postprocedural states; Z87.891 Personal history of nicotine dependence; Z79.899 Other long term (current) drug therapy; Z88.8 Allergy status to other drugs, medicaments and biological substances

== ENCOUNTER → 2019-08-21 | Outpatient (CLI) | payer OTHER, BC ==
[~2019-08-21] VITALS: Ht 177.8 cm; Wt 98.6 kg
[~2019-08-21] MED LIST changes: +TOPAMAX 25 MG T25 M1 PO
[2019-08-21 12:57] VITALS: BP 147/70
--- NOTE | 2019-08-21 13:14 | NUR ---
Pain Clinic Assessment: 1. History of Osteoarthritis: BACK History of Rheumatoid Arthritis: DENIES 2. Height: 5 ft. 10 in. 177.8 cm. Weight: 217.4 lb. oz. 98.612 kg. Patient's BMI: 31.2 3. Vital Signs: BP: 147/70 Pulse: 61 Resp: 18 Temp: 02 Sat: 100 ECG Mon: 4. Pain Intensity: 7 5. Fall Risk: Dizziness: N Needs help standing or walking: N Fallen in the last 3 months: N Fall risk comments: 6. Patient on Blood Thinner: None 7. History of Hypertension: N 8. Opioid Therapy greater than 6 weeks: N Opiate Contract Signed: 9. Risk Assessment Tool Provided: low-0 10. Functional Assessment Tool: 11. Recreational Drug Use: Never Drug Type: Tobacco Use: Former Smoker Tobacco Type: Amount or Packs/day: How Many Years: Alcohol Use: No Frequency: Quant:
--- NOTE | 2019-08-24 14:31 | HPC ---
[facility] [address] [place] [address] PAIN MANAGEMENT CONSULTATION Name: MESFIN LAKE Room #: REG WILMAR Mark.#: [id number] Admission: 08/21/19 Attend Phys: Rosendo Philip MD Discharge: Date of : 46 Report #: [id number] THIS REPORT FOR: cc: Jc Valdivia MD, Steven E. MD Morgan, Richard L. MD ~ THIS REPORT FOR: //name// CC: Rosendo Valdivia MD DATE OF SERVICE: 08/21/2019 Followup visit for chronic pain and management of intrathecal infusion pump. Chronic headaches with migraine components. The patient returns to pain clinic today for refill of his intrathecal pump. I last saw him on 07/31/2019. I increased his intrathecal pump, on that occasion his pain is slightly better. His headaches; however, seemed to be getting worse. He has had headaches as long as I have known him. We will consider this to be caused by a variety of components including his neck with cervicogenic mechanisms as well as tension type and migrainous headaches. He has been on some medicines in the years past, but nothing currently and he asked today about trying something new. I suggested Topamax 25 mg b.i.d., increasing it to 50 b.i.d. The maximum use for headache is 200. I would like to make sure he does not have side effects before we go further. PQRS review has not changed since he was last seen on 07/31/2019. PHYSICAL EXAMINATION: VITAL SIGNS: Also unchanged. Today, his blood pressure is 147/70. GENERAL: Pleasant, soft spoken, alert, oriented. No signs of depression or anxiety. His gait is somewhat slow and shuffling as before. NECK: Neck range of motion is limited in all planes. There is tenderness in the suboccipital region along the neck muscles. CHEST: Clear. CARDIAC: Rhythm is regular. ABDOMEN: Pump in the right lower abdomen. IMPRESSION: 1. Chronic cervicalgia, chronic pain with cervicogenic headaches. 2. History of posterior decompression and fusion of the cervical spine. [facility] [address] [place] [address] PAIN MANAGEMENT CONSULTATION Name: JAYAMESFIN Room #: REG [facility].#: [id number] Admission: 08/21/19 Attend Phys: Rosendo Philip MD Discharge: Date of : 46 Report #: [id number] PLAN: 1. Initiate Topamax 25 mg b.i.d. 2. Continue all other medications as ordered including gabapentin 100 mg t.i.d., which I provided for him. PROCEDURE: Skin prepped with ChloraPrep. A 22-gauge non-coring needle advanced in the pump. Old medication removed and discarded per protocol. Pump refilled and a reprogramming session was performed. He is on hydromorphone 10.8 mg, bupivacaine 10.8 mg per day. He needs a replacement of his intrathecal pump. We have sent an order to Dr. Shon Garcia's office and he will call the office to make an appointment and get that done before the spring weather hits. He likes to go fishing and it would be nice to have that all the way before the summer comes. We will follow up on the [place] by phone. <ELECTRONICALLY SIGNED> By: Rosendo Philip MD 08/24/19 1431 1715 [id number] Rosendo Philip MD /nt
== END | disposition home or self-care (01) ==
LOC: PAIN 06:43
DX: Z45.1 Encounter for adjustment and management of infusion pump (principal); G89.29 Other chronic pain; M54.2 Cervicalgia; G43.909 Migraine, unspecified, not intractable, without status migrainosus; Z98.890 Other specified postprocedural states; Z79.899 Other long term (current) drug therapy; Z87.891 Personal history of nicotine dependence; Z88.8 Allergy status to other drugs, medicaments and biological substances

== ENCOUNTER → 2019-11-08 | Outpatient (CLI) | payer OTHER, BC ==
[~2019-11-08] VITALS: Ht 177.8 cm; Wt 97.0 kg
[~2019-11-08] MED LIST changes: +NEURONTIN100 MG PO
[2019-11-08 09:20] VITALS: BP 136/62
--- NOTE | 2019-11-08 09:33 | NUR ---
Pain Clinic Assessment: 1. History of Osteoarthritis: BACK History of Rheumatoid Arthritis: DENIES 2. Height: 5 ft. 10 in. 177.8 cm. Weight: 213.8 lb. oz. 96.979 kg. Patient's BMI: 30.7 3. Vital Signs: BP: 136/62 Pulse: 68 Resp: 16 Temp: 02 Sat: 97 ECG Mon: 4. Pain Intensity: 5 5. Fall Risk: Dizziness: N Needs help standing or walking: N Fallen in the last 3 months: N Fall risk comments: 6. Patient on Blood Thinner: None 7. History of Hypertension: N 8. Opioid Therapy greater than 6 weeks: N Opiate Contract Signed: 9. Risk Assessment Tool Provided: low-0 10. Functional Assessment Tool: 34/70 11. Recreational Drug Use: Never Drug Type: Tobacco Use: Former Smoker Tobacco Type: Amount or Packs/day: How Many Years: Alcohol Use: No Frequency: Quant:
--- NOTE | 2019-11-08 12:40 | HPC ---
[facility] [place] [address] [place] [address] PAIN MANAGEMENT CONSULTATION Name: MESFIN LAKE Room #: REG [facility] SeraJatinderJaJatinder#: [id number] Admission: 11/08/19 Attend Phys: Ashley Rae Discharge: Date of : 46 Report #: [id number] THIS REPORT FOR: cc: Jc Valdivia MD, Steven E. MD Hocker, Amanda CNS ~ CC: Rosendo Philip MD DATE OF SERVICE: 11/08/2019 CHIEF COMPLAINT: Chronic cervicalgia. HISTORY OF PRESENT ILLNESS: This is a very pleasant 69-year-old gentleman who returns to the pain clinic today for refill of his gabapentin. He reports that since Dr. Rosendo Philip decreased his dose in July that he has been experiencing less dizziness. He feels that his current regimen of 100 mg 3 times a day is beneficial and would like a refill of this medication. Today, he is reporting his pain score at 5/10. Pain is located in his neck that does radiate upward to the top of his head, which is occasionally sharp and stabbing, though he is rating the pain score 5/10. It is worse when he is doing yardwork or physical activity. He reports he knows he needs to limit those activities and that decreases his pain. The patient does report he recently had his pump replaced by Dr. Garcia in late August. He is due to have his intrathecal pump refilled by Dr. Philip in December. He would like to have his medications refilled enough today to get to that next appointment. The patient also reports he is not taking the Topamax that Dr. Rosendo Philip prescribed for him in July for his cervicogenic migraine type headaches. He reports that it did not work. I explained to him that these were the lowest dose that we had talked about increasing that medication if need be, but the patient reports it was not helpful and he is interested in increasing the dose. ALLERGIES: BAND-AIDS, VISTARIL, DOXYCYCLINE, REMERON, and LEVAQUIN. CURRENT LIST OF MEDICATIONS: Reclast, omeprazole, ibuprofen, gabapentin 100 mg 3 times a day, Synthroid, calcium, multivitamin, D3, Cymbalta. PQRS: 1. He has osteoarthritis in his neck and back. Denies any rheumatoid arthritis. 2. Height is 5 feet 10 inches, weight is 213, BMI is 30. 3. Vital signs 136/62, pulse is 68, respirations 16, oxygen sat is 97%. 4. Pain score is 5/10. 5. Denies dizziness presently. He does not need help walking or standing, has [address] [address] PAIN MANAGEMENT CONSULTATION Name: MESFIN LAKE [facility] [id number] Admission: 11/08/19 Attend Phys: Ashley Rae Discharge: Date of : 46 Report #: [id number] not fallen in the last 3 months. 6. The patient is not on any blood thinners, does not have a history of hypertension. 7. Opioid therapy is greater than 6 weeks; therefore, he has an intrathecal pump in place that provides his opioids. No oral medications. 8. His risk assessment tool is low. Functional assessment is 34/70. 9. Recreational drug use, he denies. He is a former smoker and does not drink alcohol. PHYSICAL EXAMINATION: GENERAL: He is alert and orientated 69-year-old gentleman, no signs of depression or anxiety. He is a good historian, placing his current pain score at 5/10. NECK: He has limited range of motion in his cervical spine in all planes. MUSCULOSKELETAL: He has tenderness in the suboccipital and occipital regions of his neck. Denies headache presently today. ABDOMEN: He has an intrathecal pump in his lower right abdomen with a well-healed approximated scar. IMPRESSION: 1. Chronic cervicalgia. 2. History of posterior decompression and fusion of the cervical spine. RECOMMENDATIONS: 1. We discussed treatment options with the patient today. The patient found the Topamax was not beneficial in controlling any of his headaches. He does report that they have decreased since his last visit with Dr. Philip. He reports that this may be due to him limiting his activity and being mindful of what causes his increased pain and increased headaches. 2. The patient is requesting refill of his gabapentin 100 mg 3 times a day. He has found this beneficial in tapering this dose. He denies dizziness today presently which he had experienced in the past with a higher dose of gabapentin. 3. We discussed that he had his intrathecal pump replaced at the end of August by Dr. Garcia. He has a well-healed scar. The patient is scheduled for a pump refill at the beginning of December. Appointment will be made today prior to discharge. 4. The patient is seen in collaboration with Dr. Rosendo Philip today. <ELECTRONICALLY SIGNED> By: Ashley Rae 11/08/19 1240 1030 1201 Ashley Rae /nt
== END ==
LOC: PAIN 06:53
DX: M54.2 Cervicalgia (principal); Z98.1 Arthrodesis status; Z87.891 Personal history of nicotine dependence; Z88.5 Allergy status to narcotic agent; Z88.8 Allergy status to other drugs, medicaments and biological substances; Z79.899 Other long term (current) drug therapy

== ENCOUNTER → 2019-12-22 | Outpatient (CLI) | payer OTHER, BC ==
[~2019-12-22] VITALS: Ht 177.8 cm; Wt 96.4 kg
[2019-12-22 08:54] VITALS: BP 134/69
--- NOTE | 2019-12-22 09:03 | NUR ---
Pain Clinic Assessment: 1. History of Osteoarthritis: BACK History of Rheumatoid Arthritis: DENIES 2. Height: 5 ft. 10 in. 177.8 cm. Weight: 212.6 lb. oz. 96.435 kg. Patient's BMI: 30.5 3. Vital Signs: BP: 134/69 Pulse: 61 Resp: 14 Temp: 02 Sat: 100 ECG Mon: 4. Pain Intensity: 4 5. Fall Risk: Dizziness: N Needs help standing or walking: N Fallen in the last 3 months: N Fall risk comments: 6. Patient on Blood Thinner: None 7. History of Hypertension: N 8. Opioid Therapy greater than 6 weeks: N Opiate Contract Signed: 9. Risk Assessment Tool Provided: low-0 10. Functional Assessment Tool: 34/ 11. Recreational Drug Use: Never Drug Type: Tobacco Use: Former Smoker Tobacco Type: Amount or Packs/day: How Many Years: Alcohol Use: No Frequency: Quant:
--- NOTE | 2020-01-01 09:29 | HPC ---
[facility] [address] [place] [address] PAIN MANAGEMENT CONSULTATION Name: MESFIN LAKE Room #: REG WILMAR Flores.#: [id number] Admission: 12/22/19 Attend Phys: Rosendo Philip MD Discharge: Date of : 46 Report #: [id number] THIS REPORT FOR: cc: Jc Valdivia MD, Steven E. MD Morgan, Richard L. MD ~ CC: Rosendo Valdivia DATE OF SERVICE: 12/22/2019 Followup visit for chronic cervicalgia and back pain. The patient is a longstanding patient who is here today for refill of his intrathecal infusion pump. He supplements with a small amount of gabapentin 100 mg t.i.d. He says he is doing well and needs no adjustments in his medications. He is here today for straightforward standard refill. He has been getting through the [employer] without issue. His hobby is tying fishing flies and we discussed the many flies that he has been tying, which is a wonderful hobby and stress reliever. PQRS: Positive for chronic spondylosis of the spine. He denies other joint pains. BMI is 30, blood pressure 134/69, heart rate 61, respirations 14, pain intensity is a 4/10 today, quite tolerable and manageable. His functional assessment score is 34/70, marked improvement over the years ago when his scores tended to be much higher. His risk assessment tool score is 0 suggesting low risk of addiction. He is not on an opioid agreement at this time and I do not provide him with any oral opioids. He does not have hypertension. Denies use of tobacco and alcohol. PHYSICAL EXAMINATION: GENERAL: He is pleasant, alert and oriented, wearing a mask because of COVID restrictions. HEENT: His pupils are equal, round, reactive to light. EOMs are intact. VITAL SIGNS: As noted above. NECK: He has stiffness in his neck. Some pain and tenderness with radiation up into the occiput. ABDOMEN: Intrathecal pump is in the right lower quadrant of the abdomen, well healed and nontender. IMPRESSION: 1. Chronic cervicalgia. 2. Management of high risk intrathecal medications under terms of an agreement. PROCEDURE: Refill and reprogramming of intrathecal infusion pump. [facility] [address] [place] [address] PAIN MANAGEMENT CONSULTATION Name: MESFIN LAKE Room #: REG [facility].#: [id number] Admission: 12/22/19 Attend Phys: Rosendo Philip MD Discharge: Date of : 46 Report #: [id number] DESCRIPTION OF PROCEDURE: Skin was prepped with ChloraPrep. A 22-gauge non-coring needle advanced in the intrathecal pump. Old medication removed and discarded per protocol. Pump was then refilled with a combination of bupivacaine and hydromorphone. The daily dose is 9.8 of each. His refill interval is about 4-6 months. His CHELO is not for a few years, so we will keep an eye on that. Prescription was sent for his gabapentin. Electronic prescribing is down. We sent a paper prescription with him today. Followup visit planned in about 4 months. <ELECTRONICALLY SIGNED> By: Rosendo Philip MD 01/01/20 0929 0940 1410 Rosendo Philip MD /nt
== END | disposition home or self-care (01) ==
LOC: PAIN 06:52
PROVIDERS: ATTEND Anesthesiology Pain Medicine
DX: Z45.1 Encounter for adjustment and management of infusion pump (principal); M54.2 Cervicalgia; G89.29 Other chronic pain; Z79.899 Other long term (current) drug therapy; Z98.890 Other specified postprocedural states; Z79.891 Long term (current) use of opiate analgesic; Z87.891 Personal history of nicotine dependence; Z88.8 Allergy status to other drugs, medicaments and biological substances

== ENCOUNTER → 2020-04-01 | Outpatient (CLI) | payer OTHER, BC ==
[~2020-04-01] VITALS: Ht 177.8 cm; Wt 100.7 kg
--- NOTE | ~2020-04-01 | P ---
[facility] [address] [place] [address] PROCEDURE REPORT Name: MESFIN LAKE Room #: REG [facility].#: [id number] Admission: 04/01/20 Attend Phys: Rosendo Philip MD Discharge: Date of : 46 Report #: [id number] THIS REPORT FOR: cc: Jc Valdivia MD, Steven E. MD Morgan, Richard L. MD ~ CC: Rosendo Valdivia DATE OF SERVICE: 04/01/2020 PROCEDURE: Refill and reprogramming of intrathecal pump. Skin was prepped with ChloraPrep. Skin anesthetized and a 22-gauge non-coring needle advanced in the pump. Old medication was removed per protocol and noted. Pump was then refilled with hydromorphone and bupivacaine. Daily dose has been increased slightly and is now at 11.3 mg a day for each. He will continue on that through surgery. May taper him afterwards. I renewed his Gabapentin. I am planning to see him in followup as needed around the time of surgery. His next refill is scheduled for 07/10/2020. By: 1555 [id number] Rosendo Philip MD /nt
--- NOTE | ~2020-04-01 | HPC ---
[facility] [place] [address] [place] [address] PAIN MANAGEMENT CONSULTATION Name: MESFIN LAKE Room #: REG WILMAR Mark.#: [id number] Admission: 04/01/20 Attend Phys: Rosendo Philip MD Discharge: Date of : 46 Report #: [id number] CC: Rosendo Valdivia DATE OF SERVICE: 04/01/2020 Followup visit for management of chronic intractable pain with intrathecal infusion pump. The patient returns to pain clinic today to refill his intrathecal pump. He scores his pain as a 7/10. He has chronic neck pain and now complains of low back pain with radiculopathy. Dr. Garcia is planning surgery and he has told me it may be a fusion. He finds that his pain is exacerbated by any physical activity or with bending or lifting. He describes a constant numbness along with a sharp pain that radiates down into both legs. His intrathecal pump does provide relief and for that he is quite grateful. He remains active about the house and does tasks including tying flies, although he does not get the fish as often as he would like. I guess that is true of all of us and we had a good discussion today about managing chronic intractable pain with outside activities and hobbies. PQRS: Positive for osteoarthritis in the cervical spine with spondylosis throughout his spine, neck and back. He has some joint pains as well, probably osteoarthritis in the hips and knees. His BMI is stable at 30. Blood pressure 165/81, heart rate 64, respirations 18, O2 sat 100. He is not on antihypertensives. Pain intensity 7/10. He has no falls in the last 3 months. No history of blood thinners. Risk assessment tool score is low at 1 and he has been able to manage well without any signs of addiction. He does not take oral opioids, at this point in time only gabapentin, which he tolerates and I have renewed for him. Denies use of tobacco and alcohol. IMPRESSION: 1. Chronic cervicalgia. 2. Low back pain with radiculopathy. Surgery may be in the offing. 3. Management of intrathecal infusion pump with reprogramming refused and refill. By: 1555 Rosendo Philip MD /nt
[2020-04-01 09:06] VITALS: BP 165/81
--- NOTE | 2020-04-01 09:17 | NUR ---
Pain Clinic Assessment: 1. History of Osteoarthritis: BACK History of Rheumatoid Arthritis: DENIES 2. Height: 5 ft. 10 in. 177.8 cm. Weight: 222.0 lb. oz. 100.699 kg. Patient's BMI: 31.9 3. Vital Signs: BP: 165/81 Pulse: 64 Resp: 18 Temp: 02 Sat: 100 ECG Mon: 4. Pain Intensity: 7 5. Fall Risk: Dizziness: N Needs help standing or walking: N Fallen in the last 3 months: N Fall risk comments: 6. Patient on Blood Thinner: None 7. History of Hypertension: N 8. Opioid Therapy greater than 6 weeks: N Opiate Contract Signed: 9. Risk Assessment Tool Provided: low-1 10. Functional Assessment Tool: 44/ 11. Recreational Drug Use: Never Drug Type: Tobacco Use: Former Smoker Tobacco Type: Amount or Packs/day: How Many Years: Alcohol Use: No Frequency: Quant:
== END | disposition home or self-care (01) ==
LOC: PAIN 06:57
PROVIDERS: ATTEND Anesthesiology Pain Medicine
DX: Z45.1 Encounter for adjustment and management of infusion pump (principal); G89.29 Other chronic pain; M54.2 Cervicalgia; M54.16 Radiculopathy, lumbar region; Z98.890 Other specified postprocedural states; Z79.899 Other long term (current) drug therapy; Z87.891 Personal history of nicotine dependence; Z79.891 Long term (current) use of opiate analgesic; Z88.8 Allergy status to other drugs, medicaments and biological substances

== ENCOUNTER → 2020-07-08 | Outpatient (CLI) | payer OTHER, BC ==
[~2020-07-08] VITALS: Ht 175.3 cm; Wt 93.8 kg
[~2020-07-08] MED LIST changes: +NORCO 10-325 T1 EACH PO
[2020-07-08 08:53] VITALS: BP 140/81
--- NOTE | 2020-07-08 08:58 | NUR ---
Pain Clinic Assessment: 1. History of Osteoarthritis: BACK History of Rheumatoid Arthritis: DENIES 2. Height: 5 ft. 9 in. 175.3 cm. Weight: 206.8 lb. oz. 93.804 kg. Patient's BMI: 30.5 3. Vital Signs: BP: 140/81 Pulse: 83 Resp: 14 Temp: 02 Sat: 96 ECG Mon: 4. Pain Intensity: 3 5. Fall Risk: Dizziness: N Needs help standing or walking: N Fallen in the last 3 months: N Fall risk comments: 6. Patient on Blood Thinner: None 7. History of Hypertension: N 8. Opioid Therapy greater than 6 weeks: N Opiate Contract Signed: 9. Risk Assessment Tool Provided: low-1 10. Functional Assessment Tool: 44/ 11. Recreational Drug Use: Never Drug Type: Tobacco Use: Former Smoker Tobacco Type: Amount or Packs/day: How Many Years: Alcohol Use: No Frequency: Quant:
== END | disposition home or self-care (01) ==
LOC: PAIN 05-30 13:56
PROVIDERS: ATTEND Anesthesiology Pain Medicine
DX: Z45.1 Encounter for adjustment and management of infusion pump (principal); M54.2 Cervicalgia; G89.29 Other chronic pain; Z98.890 Other specified postprocedural states; Z79.899 Other long term (current) drug therapy; Z87.891 Personal history of nicotine dependence; Z79.891 Long term (current) use of opiate analgesic; Z88.8 Allergy status to other drugs, medicaments and biological substances

== ENCOUNTER → 2020-08-05 | Outpatient (CLI) | payer OTHER, BC ==
[~2020-08-05] VITALS: Ht 177.8 cm; Wt 93.9 kg
[~2020-08-05] MED LIST changes: +HYDROCODON-ACE1 EAC7 PO; +NEURONTIN 300M300 M2 PO; +NORCO5 PO
[2020-08-05 09:18] VITALS: BP 178/78
--- NOTE | 2020-08-05 09:23 | NUR ---
Pain Clinic Assessment: 1. History of Osteoarthritis: BACK History of Rheumatoid Arthritis: DENIES 2. Height: 5 ft. 10 in. 177.8 cm. Weight: 207.0 lb. oz. 93.895 kg. Patient's BMI: 29.7 3. Vital Signs: BP: 178/78 Pulse: 82 Resp: 16 Temp: 02 Sat: 100 ECG Mon: 4. Pain Intensity: 8 5. Fall Risk: Dizziness: N Needs help standing or walking: N Fallen in the last 3 months: N Fall risk comments: 6. Patient on Blood Thinner: None 7. History of Hypertension: N 8. Opioid Therapy greater than 6 weeks: N Opiate Contract Signed: 9. Risk Assessment Tool Provided: low-1 10. Functional Assessment Tool: 44/ 11. Recreational Drug Use: Never Drug Type: Tobacco Use: Former Smoker Tobacco Type: Amount or Packs/day: How Many Years: Alcohol Use: No Frequency: Quant:
== END | disposition home or self-care (01) ==
LOC: PAIN 07:04
PROVIDERS: ATTEND Anesthesiology Pain Medicine
DX: Z45.1 Encounter for adjustment and management of infusion pump (principal); M47.26 Other spondylosis with radiculopathy, lumbar region; M96.1 Postlaminectomy syndrome, not elsewhere classified; M54.2 Cervicalgia; G89.29 Other chronic pain; Z98.890 Other specified postprocedural states; Z79.899 Other long term (current) drug therapy

== ENCOUNTER → 2020-09-05 | Outpatient (CLI) | payer OTHER, BC ==
[~2020-09-05] VITALS: Ht 177.8 cm; Wt 95.5 kg
[2020-09-05 14:18] VITALS: BP 133/67
--- NOTE | 2020-09-05 14:31 | NUR ---
Pain Clinic Assessment: 1. History of Osteoarthritis: BACK History of Rheumatoid Arthritis: DENIES 2. Height: 5 ft. 10 in. 177.8 cm. Weight: 210.6 lb. oz. 95.528 kg. Patient's BMI: 30.2 3. Vital Signs: BP: 133/67 Pulse: 67 Resp: 16 Temp: 02 Sat: 97 ECG Mon: 4. Pain Intensity: 5 5. Fall Risk: Dizziness: N Needs help standing or walking: N Fallen in the last 3 months: N Fall risk comments: 6. Patient on Blood Thinner: None 7. History of Hypertension: N 8. Opioid Therapy greater than 6 weeks: N Opiate Contract Signed: 9. Risk Assessment Tool Provided: low-1 10. Functional Assessment Tool: 44/ 11. Recreational Drug Use: Never Drug Type: Tobacco Use: Former Smoker Tobacco Type: Amount or Packs/day: How Many Years: Alcohol Use: No Frequency: Quant:
== END | disposition home or self-care (01) ==
LOC: PAIN 06:51
PROVIDERS: ATTEND Anesthesiology Pain Medicine
DX: Z45.1 Encounter for adjustment and management of infusion pump (principal); G89.29 Other chronic pain; M96.1 Postlaminectomy syndrome, not elsewhere classified; M54.2 Cervicalgia; G44.89 Other headache syndrome; M47.26 Other spondylosis with radiculopathy, lumbar region; Z79.891 Long term (current) use of opiate analgesic; Z98.890 Other specified postprocedural states; Z79.899 Other long term (current) drug therapy; Z87.891 Personal history of nicotine dependence; Z88.8 Allergy status to other drugs, medicaments and biological substances

== ENCOUNTER → 2020-09-12 | Outpatient (CLI) | payer OTHER, BC ==
[~2020-09-12] VITALS: Ht 177.8 cm; Wt 97.3 kg
[2020-09-12 09:11] VITALS: BP 153/77
--- NOTE | 2020-09-12 09:19 | NUR ---
Pain Clinic Assessment: 1. History of Osteoarthritis: BACK History of Rheumatoid Arthritis: DENIES 2. Height: 5 ft. 10 in. 177.8 cm. Weight: 214.6 lb. oz. 97.342 kg. Patient's BMI: 30.8 3. Vital Signs: BP: 153/77 Pulse: 64 Resp: 14 Temp: 02 Sat: 100 ECG Mon: 4. Pain Intensity: 6 5. Fall Risk: Dizziness: N Needs help standing or walking: N Fallen in the last 3 months: N Fall risk comments: 6. Patient on Blood Thinner: None 7. History of Hypertension: N 8. Opioid Therapy greater than 6 weeks: N Opiate Contract Signed: 9. Risk Assessment Tool Provided: low-1 10. Functional Assessment Tool: 44/ 11. Recreational Drug Use: Never Drug Type: Tobacco Use: Former Smoker Tobacco Type: Amount or Packs/day: How Many Years: Alcohol Use: No Frequency: Quant:
== END | disposition home or self-care (01) ==
LOC: PAIN 06:38
PROVIDERS: ATTEND Clinical Nurse Specialist Adult Health
DX: Z45.1 Encounter for adjustment and management of infusion pump (principal); G89.29 Other chronic pain; M54.2 Cervicalgia; R51.9 Headache, unspecified; Z79.891 Long term (current) use of opiate analgesic; Z98.890 Other specified postprocedural states; Z79.899 Other long term (current) drug therapy; Z87.891 Personal history of nicotine dependence; Z88.8 Allergy status to other drugs, medicaments and biological substances

== ENCOUNTER → 2020-12-05 | Outpatient (CLI) | payer OTHER, BC ==
[~2020-12-05] VITALS: Ht 177.8 cm; Wt 98.1 kg
[~2020-12-05] MED LIST changes: +CYMBALTA20 MG PO; +CYMBALTA30 MG PO
[2020-12-05 12:43] VITALS: BP 149/75
--- NOTE | 2020-12-05 12:49 | NUR ---
Pain Clinic Assessment: 1. History of Osteoarthritis: BACK History of Rheumatoid Arthritis: DENIES 2. Height: 5 ft. 10 in. 177.8 cm. Weight: 216.2 lb. oz. 98.068 kg. Patient's BMI: 31.0 3. Vital Signs: BP: 149/75 Pulse: 72 Resp: 16 Temp: 02 Sat: 97 ECG Mon: 4. Pain Intensity: 6 5. Fall Risk: Dizziness: Y Needs help standing or walking: N Fallen in the last 3 months: N Fall risk comments: 6. Patient on Blood Thinner: None 7. History of Hypertension: N 8. Opioid Therapy greater than 6 weeks: N Opiate Contract Signed: 9. Risk Assessment Tool Provided: low-1 10. Functional Assessment Tool: 44/ 11. Recreational Drug Use: Never Drug Type: Tobacco Use: Former Smoker Tobacco Type: Amount or Packs/day: How Many Years: Alcohol Use: No Frequency: Quant:
== END | disposition home or self-care (01) ==
LOC: PAIN 09-19 14:04
PROVIDERS: ATTEND Clinical Nurse Specialist Adult Health
DX: Z45.1 Encounter for adjustment and management of infusion pump (principal); M54.2 Cervicalgia; G89.29 Other chronic pain; M96.1 Postlaminectomy syndrome, not elsewhere classified; Z98.890 Other specified postprocedural states; Z79.899 Other long term (current) drug therapy; Z88.8 Allergy status to other drugs, medicaments and biological substances

== ENCOUNTER → 2020-12-09 | Outpatient (CLI) | payer OTHER, BC ==
[~2020-12-09] VITALS: Ht 177.8 cm; Wt 98.0 kg
[2020-12-09 12:42] VITALS: BP 134/75
--- NOTE | 2020-12-09 13:01 | NUR ---
Pain Clinic Assessment: 1. History of Osteoarthritis: BACK History of Rheumatoid Arthritis: DENIES 2. Height: 5 ft. 10 in. 177.8 cm. Weight: 216.0 lb. oz. 97.977 kg. Patient's BMI: 31.0 3. Vital Signs: BP: 134/75 Pulse: 65 Resp: 16 Temp: 02 Sat: 100 ECG Mon: 4. Pain Intensity: 0 5. Fall Risk: Dizziness: Y Needs help standing or walking: N Fallen in the last 3 months: N Fall risk comments: 6. Patient on Blood Thinner: None 7. History of Hypertension: N 8. Opioid Therapy greater than 6 weeks: N Opiate Contract Signed: 9. Risk Assessment Tool Provided: low-1 10. Functional Assessment Tool: 44/ 11. Recreational Drug Use: Never Drug Type: Tobacco Use: Former Smoker Tobacco Type: Amount or Packs/day: How Many Years: Alcohol Use: No Frequency: Quant:
== END | disposition home or self-care (01) ==
LOC: PAIN 10:42
PROVIDERS: ATTEND Anesthesiology Pain Medicine
DX: Z45.1 Encounter for adjustment and management of infusion pump (principal); G44.89 Other headache syndrome; Z98.890 Other specified postprocedural states; Z79.899 Other long term (current) drug therapy; Z87.891 Personal history of nicotine dependence

== ENCOUNTER → 2021-01-23 | Outpatient (CLI) | payer OTHER, BC ==
[~2021-01-23] VITALS: Ht 177.8 cm; Wt 95.6 kg
[2021-01-23 09:05] VITALS: BP 152/76
--- NOTE | 2021-01-23 09:10 | NUR ---
Pain Clinic Assessment: 1. History of Osteoarthritis: BACK History of Rheumatoid Arthritis: DENIES 2. Height: 5 ft. 10 in. 177.8 cm. Weight: 210.8 lb. oz. 95.618 kg. Patient's BMI: 30.2 3. Vital Signs: BP: 152/76 Pulse: 56 Resp: 16 Temp: 02 Sat: 97 ECG Mon: 4. Pain Intensity: 2 5. Fall Risk: Dizziness: N Needs help standing or walking: N Fallen in the last 3 months: N Fall risk comments: 6. Patient on Blood Thinner: None 7. History of Hypertension: N 8. Opioid Therapy greater than 6 weeks: N Opiate Contract Signed: 9. Risk Assessment Tool Provided: low-1 10. Functional Assessment Tool: 44/ 11. Recreational Drug Use: Never Drug Type: Tobacco Use: Former Smoker Tobacco Type: Amount or Packs/day: How Many Years: Alcohol Use: No Frequency: Quant:
== END | disposition home or self-care (01) ==
LOC: PAIN 07:00
PROVIDERS: ATTEND Anesthesiology Pain Medicine
DX: Z45.1 Encounter for adjustment and management of infusion pump (principal); M54.12 Radiculopathy, cervical region; G89.29 Other chronic pain; M96.1 Postlaminectomy syndrome, not elsewhere classified; F32.9 Major depressive disorder, single episode, unspecified; F41.9 Anxiety disorder, unspecified; Z98.890 Other specified postprocedural states; Z79.899 Other long term (current) drug therapy; Z87.891 Personal history of nicotine dependence; Z88.8 Allergy status to other drugs, medicaments and biological substances; Z79.891 Long term (current) use of opiate analgesic

== ENCOUNTER → 2021-05-01 | Outpatient (CLI) | payer OTHER, BC ==
[~2021-05-01] VITALS: Ht 177.8 cm; Wt 100.8 kg
[2021-05-01 13:09] VITALS: BP 142/74
--- NOTE | 2021-05-01 13:25 | NUR ---
Pain Clinic Assessment: 1. History of Osteoarthritis: BACK History of Rheumatoid Arthritis: DENIES 2. Height: 5 ft. 10 in. 177.8 cm. Weight: 222.2 lb. oz. 100.789 kg. Patient's BMI: 31.9 3. Vital Signs: BP: 142/74 Pulse: 63 Resp: 16 Temp: 02 Sat: 100 ECG Mon: 4. Pain Intensity: 7 5. Fall Risk: Dizziness: N Needs help standing or walking: N Fallen in the last 3 months: N Fall risk comments: 6. Patient on Blood Thinner: None 7. History of Hypertension: N 8. Opioid Therapy greater than 6 weeks: N Opiate Contract Signed: 9. Risk Assessment Tool Provided: low-1 10. Functional Assessment Tool: 44/ 11. Recreational Drug Use: Never Drug Type: Tobacco Use: Former Smoker Tobacco Type: Amount or Packs/day: How Many Years: Alcohol Use: No Frequency: Quant:
== END | disposition home or self-care (01) ==
LOC: PAIN 10:58
PROVIDERS: ATTEND Clinical Nurse Specialist Adult Health
DX: Z45.1 Encounter for adjustment and management of infusion pump (principal); M54.2 Cervicalgia; R51.9 Headache, unspecified; G89.29 Other chronic pain; M54.16 Radiculopathy, lumbar region; Z98.890 Other specified postprocedural states; Z79.899 Other long term (current) drug therapy; Z79.891 Long term (current) use of opiate analgesic; Z87.891 Personal history of nicotine dependence; Z88.8 Allergy status to other drugs, medicaments and biological substances

== ENCOUNTER → 2021-06-30 | Outpatient (CLI) | payer OTHER, BC ==
[~2021-06-30] VITALS: Ht 177.8 cm; Wt 102.2 kg
[2021-06-30 08:52] VITALS: BP 139/80
--- NOTE | 2021-06-30 09:02 | NUR ---
Pain Clinic Assessment: 1. History of Osteoarthritis: BACK History of Rheumatoid Arthritis: DENIES 2. Height: 5 ft. 10 in. 177.8 cm. Weight: 225.4 lb. oz. 102.241 kg. Patient's BMI: 32.3 3. Vital Signs: BP: 139/80 Pulse: 60 Resp: 16 Temp: 02 Sat: 98 ECG Mon: 4. Pain Intensity: 1 5. Fall Risk: Dizziness: N Needs help standing or walking: N Fallen in the last 3 months: N Fall risk comments: 6. Patient on Blood Thinner: None 7. History of Hypertension: N 8. Opioid Therapy greater than 6 weeks: N Opiate Contract Signed: 9. Risk Assessment Tool Provided: low-1 10. Functional Assessment Tool: 44/ 11. Recreational Drug Use: Never Drug Type: Tobacco Use: Former Smoker Tobacco Type: Amount or Packs/day: How Many Years: Alcohol Use: No Frequency: Quant:
== END | disposition home or self-care (01) ==
LOC: PAIN 07:57
PROVIDERS: ATTEND Anesthesiology Pain Medicine
DX: Z45.1 Encounter for adjustment and management of infusion pump (principal); G89.29 Other chronic pain; M96.1 Postlaminectomy syndrome, not elsewhere classified; Z98.890 Other specified postprocedural states; Z79.899 Other long term (current) drug therapy; Z87.891 Personal history of nicotine dependence; Z88.8 Allergy status to other drugs, medicaments and biological substances

== ENCOUNTER → 2021-07-18 | Outpatient (CLI) | payer OTHER, BC ==
[~2021-07-18] VITALS: Ht 177.8 cm; Wt 101.5 kg
[2021-07-18 09:40] VITALS: BP 157/79
--- NOTE | 2021-07-18 09:49 | NUR ---
Pain Clinic Assessment: 1. History of Osteoarthritis: BACK History of Rheumatoid Arthritis: DENIES 2. Height: 5 ft. 10 in. 177.8 cm. Weight: 223.8 lb. oz. 101.515 kg. Patient's BMI: 32.1 3. Vital Signs: BP: 157/79 Pulse: 76 Resp: 16 Temp: 02 Sat: 98 ECG Mon: 4. Pain Intensity: 0 5. Fall Risk: Dizziness: N Needs help standing or walking: N Fallen in the last 3 months: N Fall risk comments: 6. Patient on Blood Thinner: None 7. History of Hypertension: N 8. Opioid Therapy greater than 6 weeks: N Opiate Contract Signed: 9. Risk Assessment Tool Provided: low-1 10. Functional Assessment Tool: 44/ 11. Recreational Drug Use: Never Drug Type: Tobacco Use: Former Smoker Tobacco Type: Amount or Packs/day: How Many Years: Alcohol Use: No Frequency: Quant:
== END | disposition home or self-care (01) ==
LOC: PAIN 09:26
PROVIDERS: ATTEND Clinical Nurse Specialist Adult Health
DX: Z45.1 Encounter for adjustment and management of infusion pump (principal); G89.29 Other chronic pain; M96.1 Postlaminectomy syndrome, not elsewhere classified; M54.81 Occipital neuralgia; Z98.890 Other specified postprocedural states; Z79.899 Other long term (current) drug therapy; Z87.891 Personal history of nicotine dependence; Z79.891 Long term (current) use of opiate analgesic; Z88.8 Allergy status to other drugs, medicaments and biological substances